=== PATIENT | male | born 1970 | race Caucasian/White ===

== ENCOUNTER 2020-11-22 18:00 | Observation (INO) | payer BC, OTHER ==
[2020-11-22] MEDS ORDERED: Sodium Chloride 0.9% 10 ML Syringe FLUSH PRN (18:09)
[2020-11-22] MEDS ORDERED: Sodium Chloride 0.9% 2.5 ML Syringe FLUSH PRN (18:09)
[2020-11-22] MEDS ORDERED: Nitroglycerin 0.4 MG Tab.SL SL PRN (18:09)
[2020-11-22] MEDS ORDERED: Aspirin 81 MG Tab.Chew PO ONE (18:09)
--- NOTE | 2020-11-22 18:14 | EDM.PDOC ---
ED HPI GENERAL MEDICAL PROBLEM - General Stated Complaint: CHEST PAIN AND TIGHTNESS Time Seen by Provider: 11/22/20 18:08 Source of Information: Reports: Patient History Limitations: Reports: No Limitations - History of Present Illness INITIAL COMMENTS - FREE TEXT/NARRATIVE: HISTORY AND PHYSICAL: History of present illness: Patient is a 50-year-old male who presents to the ED today with concern of onset of chest tightness that radiates to his right shoulder, and exertional dyspnea that began 2 and half hours prior to arrival to the ED. Patient states he was just sitting when he began noticing his symptoms. Patient states that he started to get concerned when he had exertional dyspnea and states that walking short distances he begins to feel short of breath. Patient states he does have a history of a prior stent placed in 2019 found after his stress test according to patient. Patient states that at that time he also was having chest tightness. Patient states he had COVID-19 at the end of September/beginning of October and has been out of quarantine. Patient states that he has not taken any aspirin or medication today for his symptoms. Patient denies fever, chills, or cough. Denies headache, neck stiff ness, change in vision, syncope, or near syncope. Denies nausea, vomiting, abdominal pain, diarrhea, constipation, or dysuria. Has not noted any blood in urine or stool. Patient has been eating and drinking appropriately. Review of systems: As per history of present illness and below otherwise all systems reviewed and negative. Past medical history: As per history of present illness and as reviewed below otherwise noncontributory. Surgical history: As per history of present illness and as reviewed below otherwise noncontributory. Social history: See social history for further information Family history: As per history of present illness and as reviewed below otherwise noncontributory. Physical exam: General: Patient is alert, oriented, and in no acute distress. Patient sitting comfortably on exam table. Vitals stable and reviewed by me. HEENT: Atraumatic, normocephalic, pupils equal and reactive bilaterally, negative for conjunctival pallor or scleral icterus, mucous membranes moist, TMs normal bilaterally, throat clear, neck supple, nontender, trachea midline. No drooling or trismus noted. No meningeal signs. No hot potato voice noted. Lungs: Clear to auscultation, breath sounds equal bilaterally, chest nontender. Heart: S1S2, regular rate and rhythm without overt murmur Abdomen: Soft, nondistended, nontender. Negative for masses or hepatosple nomegaly. Negative for costovertebral tenderness. Pelvis: Stable nontender. Genitourinary: Deferred. Rectal: Deferred. Skin: Intact, warm, dry. No lesions or rashes noted. Extremities: Atraumatic, negative for cords or calf pain. Neurovascular unremarkable. Neuro: Awake, alert, oriented. Cranial nerves II through XII unremarkable. Cerebellum unremarkable. Motor and sensory unremarkable throughout. Exam nonfocal. Notes: Upon reevaluation of patient, he expresses that his chest pain is coming and going. Not having chest pain but he just had chest pain 10 minutes prior to me arriving into the room which resolved on its own. Dr. Abbasi consulted on patient and will admit to observation telemetry. Voices understanding and is agreeable to plan of care. Denies any further questions or concerns at this time. Diagnostics: EKG, CBC, CMP, CXR, Trop, Ddimer, Lipase, Ang CT, repeat trop Therapeutics: ASA, Nitro SL x 3 Impression: Chest pain r/o ACS Plan: Admit to observation to Dr. Abbasi on telemetry Definitive disposition and diagnosis as appropriate pending reevaluation and review of above. right arm Pain Score (Numeric/FACES): 4 chest/r arm Pain Score (Numeric/FACES): 8 - Related Data Allergies Allergy/AdvReac Type Severity Reaction Status Date / Time No Known Allergies Allergy Verified 11/22/20 18:37 Home Meds: Home Meds Aspirin 81 mg PO DAILY 11/22/20 [History] Insulin Detemir [Levemir] 20 units SQ DAILY 11/22/20 [History] PARoxetine [Paxil] 40 mg PO DAILY 11/22/20 [History] Simvastatin 10 mg PO DAILY 11/22/20 [History] SitaGLIPtin [Januvia] 100 mg PO DAILY 11/22/20 [History] Ticagrelor [Brilinta] 90 mg PO BID 11/22/20 [History] carvediloL [Carvedilol] 3.125 mg PO BID 11/22/20 [History] metFORMIN [Glucophage] 1,000 mg PO BID 11/22/20 [History] ED ROS GENERAL - Review of Systems Review Of Systems: Comprehensive ROS is negative, except as noted in HPI. ED EXAM, GENERAL - Physical Exam Exam: See Below (see dictation) Course - Vital Signs Last Recorded V/S: Last Vital Signs Temp 98.7 F 11/22/20 18:41 Pulse 93 11/22/20 21:46 Resp 18 11/22/20 20:05 BP 141/83 H 11/22/20 21:46 Pulse Ox 98 11/22/20 21:46 - Orders/Labs/Meds Orders: Active Orders 24 hr Category Date Time Status Admission Status [Patient Status] [ADT] Stat ADT 11/22/20 22:11 Active Cardiac Monitoring [RC] . DIRECTED Care 11/22/20 18:09 Active Cardiac Monitoring [RC] . DIRECTED Care 11/22/20 22:11 Active EKG Documentation Completion [RC] STAT Care 11/22/20 18:09 Active CORONAVIRUS COVID-19 [facility] [MOLEC] Stat Lab 11/22/20 22:18 Received Nitroglycerin [Nitrostat] Med 11/22/20 18:09 Active 0.4 mg SL Q5M PRN Sodium Chloride 0.9% [Saline Flush] Med 11/22/20 18:09 Active 10 ml FLUSH ASDIRECTED PRN Sodium Chloride 0.9% [Saline Flush] Med 11/22/20 18:09 Active 2.5 ml FLUSH ASDIRECTED PRN Saline Lock Insert [OM.PC] Stat Oth 11/22/20 18:09 Ordered Medication Orders Nitroglycerin (Nitrostat) 0.4 mg SL Q5M PRN PRN Reason: Chest Pain Last Admin: 11/22/20 18:19 Dose: 0.4 mg Documented by: ELIORI Sodium Chloride (Saline Flush) 10 ml FLUSH ASDIRECTED PRN PRN Reason: Keep Vein Open Last Admin: 11/22/20 18:13 Dose: 10 ml Documented by: ELIORI Sodium Chloride (Saline Flush) 2.5 ml FLUSH ASDIRECTED PRN PRN Reason: Keep Vein Open Last Admin: 11/22/20 18:13 Dose: 2.5 ml Documented by: JUANITA Labs: Laboratory Tests 11/22/20 11/22/20 11/22/20 Range/Units 18:10 18:10 18:10 WBC 16.88 H (4.0-11.0) K/uL RBC 4.92 (4.50-5.90) M/uL Hgb 14.2 (13.0-17.0) g/dL Hct 42.0 (38.0-50.0) % MCV 85.4 (80.0-98.0) fL MCH 28.9 (27.0-32.0) pg MCHC 33.8 (31.0-37.0) g/dL RDW Std Deviation 41.0 (28.0-62.0) fl RDW Coeff of Master 13 (11.0-15.0) % Plt Count 269 (150-400) K/uL MPV 10.20 (7.40-12.00) fL Add Manual Diff YES Neutrophils % (Manual) 68 (48.0-80.0) % Lymphocytes % (Manual) 22 (16.0-40.0) % Monocytes % (Manual) 9 (0.0-15.0) % Eosinophils % (Manual) 1 (0.0-7.0) % Absolute Seg Neuts 11.5 H (1.4-5.7) Lymphocytes # (Manual) 3.7 H (0.6-2.4) Monocytes # (Manual) 1.5 H (0.0-0.8) Eosinophils # (Manual) 0.2 (0.0-0.7) D-Dimer, Quantitative 0.69 H (0.0-0.50) mg/L FEU Lactate (0.20-2.00) mmol/L Sodium 136 (136-148) mmol/L Potassium 3.8 (3.5-5.1) mmol/L Chloride 98 (98-107) mmol/L Carbon Dioxide 26.3 (21.0-32.0) mmol/L BUN 16 (7.0-18.0) mg/dL Creatinine 1.2 (0.8-1.3) mg/dL Est Cr Clr Drug Dosing 72.83 mL/min Estimated GFR (MDRD) > 60.0 ml/min Glucose 228 H (74-106) mg/dL Calcium 9.2 (8.5-10.1) mg/dL Total Bilirubin 0.4 (0.2-1.0) mg/dL AST 15 (15-37) IU/L ALT 18 (14-63) IU/L Alkaline Phosphatase 90 (46-116) U/L Troponin I < 0.050 (0.000-0.056) ng/mL Total Protein 7.1 (6.4-8.2) g/dL Albumin 3.3 L (3.4-5.0) g/dL Globulin 3.8 (2.6-4.0) g/dL Albumin/Globulin Ratio 0.9 (0.9-1.6) Lipase 208 (73-393) U/L 11/22/20 11/22/20 Range/Units 18:49 21:45 WBC (4.0-11.0) K/uL RBC (4.50-5.90) M/uL Hgb (13.0-17.0) g/dL Hct (38.0-50.0) % MCV (80.0-98.0) fL MCH (27.0-32.0) pg MCHC (31.0-37.0) g/dL RDW Std Deviation (28.0-62.0) fl RDW Coeff of Master (11.0-15.0) % Plt Count (150-400) K/uL MPV (7.40-12.00) fL Add Manual Diff Neutrophils % (Manual) (48.0-80.0) % Lymphocytes % (Manual) (16.0-40.0) % Monocytes % (Manual) (0.0-15.0) % Eosinophils % (Manual) (0.0-7.0) % Absolute Seg Neuts (1.4-5.7) Lymphocytes # (Manual) (0.6-2.4) Monocytes # (Manual) (0.0-0.8) Eosinophils # (Manual) (0.0-0.7) D-Dimer, Quantitative (0.0-0.50) mg/L FEU Lactate 0.8 (0.20-2.00) mmol/L Sodium (136-148) mmol/L Potassium (3.5-5.1) mmol/L Chloride (98-107) mmol/L Carbon Dioxide (21.0-32.0) mmol/L BUN (7.0-18.0) mg/dL Creatinine (0.8-1.3) mg/dL Est Cr Clr Drug Dosing mL/min Estimated GFR (MDRD) ml/min Glucose (74-106) mg/dL Calcium (8.5-10.1) mg/dL Total Bilirubin (0.2-1.0) mg/dL AST (15-37) IU/L ALT (14-63) IU/L Alkaline Phosphatase (46-116) U/L Troponin I < 0.050 (0.000-0.056) ng/mL Total Protein (6.4-8.2) g/dL Albumin (3.4-5.0) g/dL Globulin (2.6-4.0) g/dL Albumin/Globulin Ratio (0.9-1.6) Lipase (73-393) U/L Meds: Medications Generic Name Dose Route Start Last Admin Trade Name Freq PRN Reason Stop Dose Admin Nitroglycerin 0.4 mg 11/22/20 18:09 11/22/20 18:19 Nitrostat SL 0.4 mg Q5M PRN Administration Chest Pain Sodium Chloride 10 ml 11/22/20 18:09 11/22/20 18:13 Saline Flush FLUSH 10 ml ASDIRECTED PRN Administration Keep Vein Open Sodium Chloride 2.5 ml 11/22/20 18:09 11/22/20 18:13 Saline Flush FLUSH 2.5 ml ASDIRECTED PRN Administration Keep Vein Open Discontinued Medications Generic Name Dose Route Start Last Admin Trade Name Dwayne PRN Reason Stop Dose Admin Aspirin 324 mg 11/22/20 18:09 11/22/20 18:12 Aspirin PO 11/22/20 18:10 324 mg ONETIME ONE Administration Aspirin Confirm 11/22/20 18:15 11/22/20 18:20 Aspirin Administered 11/22/20 18:16 Not Given Dose 81 mg .ROUTE .STK-MED ONE Iopamidol 100 ml 11/22/20 21:26 11/22/20 21:26 Isovue Multipack-370 (76%) IVPUSH 11/22/20 21:27 100 ml ONETIME STA Administration Departure - Departure Time of Disposition: 22:19 Disposition: Refer to Observation Clinical Impression: Chest pain Qualifiers: Chest pain type: unspecified Qualified Code(s): R07.9 - Chest pain, unspecified - Discharge Information Referrals: PCP,Unknown [Primary Care Provider] - Sepsis Event Note (ED) - Focused Exam Vital Signs: Vital Signs Temp Pulse Resp BP BP Pulse Ox 11/22/20 21:46 93 141/83 H 98 11/22/20 20:05 91 18 136/76 95 11/22/20 18:41 98.7 F 103 H 18 172/129 H 99 11/22/20 18:23 102 H 114/74 97 11/22/20 18:19 151/87 H 151/87 H - My Orders Last 24 Hours: My Active Orders 11/22/20 18:09 Cardiac Monitoring [RC] . DIRECTED EKG Documentation Completion [RC] STAT Nitroglycerin [Nitrostat] 0.4 mg SL Q5M PRN Sodium Chloride 0.9% [Saline Flush] 10 ml FLUSH ASDIRECTED PRN Sodium Chloride 0.9% [Saline Flush] 2.5 ml FLUSH ASDIRECTED PRN Saline Lock Insert [OM.PC] Stat 11/22/20 22:11 Admission Status [Patient Status] [ADT] Stat Cardiac Monitoring [RC] . DIRECTED 11/22/20 22:18 CORONAVIRUS COVID-19 [facility] [MOLEC] Stat - Assessment/Plan Last 24 Hours: My Active Orders 11/22/20 18:09 Cardiac Monitoring [RC] . DIRECTED EKG Documentation Completion [RC] STAT Nitroglycerin [Nitrostat] 0.4 mg SL Q5M PRN Sodium Chloride 0.9% [Saline Flush] 10 ml FLUSH ASDIRECTED PRN Sodium Chloride 0.9% [Saline Flush] 2.5 ml FLUSH ASDIRECTED PRN Saline Lock Insert [OM.PC] Stat 11/22/20 22:11 Admission Status [Patient Status] [ADT] Stat Cardiac Monitoring [RC] . DIRECTED 11/22/20 22:18 CORONAVIRUS COVID-19 [facility] [MOLEC] Stat
[2020-11-22] MEDS ORDERED: Aspirin 81 MG Tab.Chew ONE (18:15)
--- NOTE | 2020-11-22 18:23 | PCM.SN.2 ---
- Free Text/Narrative Note: EKG Time 602pm Rate 99 NSR no RACHEL
--- NOTE | 2020-11-22 18:34 | CR ---
INDICATION: Chest pain, SOB1 image TECHNIQUE: Chest 1 view. COMPARISON: None. FINDINGS: Cardiovascular and mediastinum: Heart size and vasculature are normal in caliber and appearance. Mediastinum is within normal limits. Lungs and pleural space: Lungs are clear. No sign of infiltrate or mass. No sign of pleural effusion. No pneumothorax. Bones and soft tissues: No significant findings. IMPRESSION: Unremarkable chest. Dictated by: Hayden Alexander MD @ 11/22/2020 18:33:57 (Electronically Signed)
[2020-11-22 18:46] LABS: BLOOD UREA NITROGEN,BUN 16 mg/dL (7.0-18.0); CARBON DIOXIDE,CO2 26.3 mmol/L (21.0-32.0); CHLORIDE,CL 98 mmol/L (98-107); GLUCOSE RANDOM 228 mg/dL (74-106); LIPASE 208 U/L (73-393); POTASSIUM,K 3.8 mmol/L (3.5-5.1); SODIUM,NA 136 mmol/L (136-148)
[2020-11-22] MEDS ORDERED: Iopamidol 755 MG/ML 500 ML Multipack Bottle IVPUSH STA (21:26)
--- NOTE | 2020-11-22 21:48 | CT ---
INDICATION: Chest pain and shortness breath. Elevated D-dimer. TECHNIQUE: CT chest PE was acquired with 100 cc Isovue 370 IV contrast. COMPARISON: None. FINDINGS: Heart and vasculature: Contrast opacification of the pulmonary arterial tree is adequate. No sign of pulmonary embolism. Heart size is normal. Thoracic aorta and pulmonary artery are normal in caliber. Lungs and pleural: No suspicious nodules or infiltrates. No pleural effusions, pleural thickening, or pneumothorax. Lymph nodes/mediastinum: No mediastinal, hilar, or axillary adenopathy. Thyroid gland is normal. Chest wall: No masses. Upper abdomen: Normal. Bones: Unremarkable for age. IMPRESSION: Unremarkable CT of the chest. No pulmonary embolism and the lungs are clear. Please note that all CT scans at this facility use dose modulation, iterative reconstruction, and/or weight-based dosing when appropriate to reduce radiation dose to as low as reasonably achievable. Dictated by Shlomo Harris MD @ Nov 22 2020 9:39PM Signed by Dr. Shlomo Harris @ Nov 22 2020 9:47PM
[2020-11-22] MEDS ORDERED: Alum Hydrox/Mag Hydrox/Simeth 15 ML, Lidocaine 2% 5 ML PO ONE ×2 (22:45)
[2020-11-22] MEDS ORDERED: Ondansetron 4 MG/2 ML SDV IVPUSH PRN (23:39)
[2020-11-22] MEDS ORDERED: Albuterol/Ipratropium 3.0-0.5 MG/3 ML Neb Soln NEB PRN (23:39)
[2020-11-22] MEDS ORDERED: Morphine 2 MG/ML SYRINGE IVPUSH PRN (23:42)
[2020-11-22] MEDS ORDERED: 50% Dextrose in Water 50 ML Syringe IV PRN (23:44)
[2020-11-22] MEDS ORDERED: Glucagon,Human Recombinant 1 MG Vial IM PRN (23:44)
[2020-11-22] MEDS ORDERED: Pantoprazole 40 MG in Sodium Chloride 0.9% 10 ML IV SCH (23:45)
[2020-11-22] MEDS ORDERED: Enoxaparin 40 MG/0.4 ML Syringe SUBCUT SCH (23:45)
--- NOTE | 2020-11-22 23:57 | PCM.HP.2 ---
H&P History of Present Illness - General Date of Service: 11/22/20 Admit Problem/Dx: Admission Diagnosis/Problem Admission Diagnosis/Problem Chest pain - History of Present Illness Initial Comments - Free Text/Narative: Patient is a 50-year-old male with PMH of CAD, s/p stenting in 2018, DM on insulin, HTN, smoker who presents to the ED today with concern of onset of chest pain that radiates to his right shoulder associated with exertional dyspnea that began 2 and half hours prior to arrival to the ED. Patient states he had COVID- 19 at the end of September/beginning of October and has been out of quarantine. Patient also c/o of tingling of his right arm without any associated weakness going on for pas 2-3 weeks, states he also has some associated pain in his right shoulder. Patient also c/o intermittent palpitations, not associated with dizziness. He received Nitro and ASA in ER with some relief. EKG was unremarkable for acute ischemic changes., Troponin was negative, CBC showed leucocytosis, During my interview he was c/o some epigastric pain, states he feels a lot more tired these days. Patients BP was elevated in ER which resolved spontaneously. Patient was admitted for further care. right arm Pain Score (Numeric/FACES): 4 chest/r arm Pain Score (Numeric/FACES): 8 - Related Data Allergies/Adverse Reactions: Allergies Allergy/AdvReac Type Severity Reaction Status Date / Time No Known Allergies Allergy Verified 11/22/20 18:37 Home Medications: Home Meds Aspirin 81 mg PO DAILY 11/22/20 [History] Insulin Detemir [Levemir] 20 units SQ DAILY 11/22/20 [History] PARoxetine [Paxil] 40 mg PO DAILY 11/22/20 [History] Simvastatin 10 mg PO DAILY 11/22/20 [History] SitaGLIPtin [Januvia] 100 mg PO DAILY 11/22/20 [History] Ticagrelor [Brilinta] 90 mg PO BID 11/22/20 [History] carvediloL [Carvedilol] 3.125 mg PO BID 11/22/20 [History] metFORMIN [Glucophage] 1,000 mg PO BID 11/22/20 [History] Past Medical History Cardiovascular History: Reports: Stents Other Musculoskeletal History: pelvic fx Endocrine/Metabolic History: Reports: Diabetes, Type II - Past Surgical History Cardiovascular Surgical History: Reports: Valve Replacement Social & Family History - Family History Family Medical History: No Pertinent Family History - Caffeine Use Caffeine Use: Reports: Coffee - Recreational Drug Use Recreational Drug Use: No H&P Review of Systems - Review of Systems: Review Of Systems: See Below General: Reports: Weakness. Denies: Fever, Chills, Malaise Pulmonary: Denies: Shortness of Breath, Wheezing, Pleuritic Chest Pain, Sputum Cardiovascular: Reports: Chest Pain, Palpitations, Dyspnea on Exertion. Denies: Orthopnea, PND, Edema, Lightheadedness Gastrointestinal: Denies: Abdominal Pain, Anorexia, Black Stool, Bloody Stool Genitourinary: Denies: Dysuria, Frequency, Burning, Urgency Musculoskeletal: Reports: Shoulder Pain, Arm Pain (tingling). Denies: Neck Pain, Back Pain, Hand Pain, Leg Pain, Foot Pain Skin: Denies: Cyanosis, Jaundice, Mottled Psychiatric: Denies: Confusion, Depression, Mood Lability Neurological: Denies: Confusion, Dizziness, Headache Exam - Exam Exam: See Below - Vital Signs Vital Signs: Last Vital Signs Temp 37.1 C 11/22/20 18:41 Pulse 95 11/22/20 23:40 Resp 18 11/22/20 20:05 BP 132/83 11/22/20 23:40 Pulse Ox 95 11/22/20 23:40 Weight: 99.79 kg - Exam General: Alert, Oriented, Cooperative Lungs: Clear to Auscultation, Normal Respiratory Effort Cardiovascular: Regular Rate, Regular Rhythm, Normal S1, Normal S2 GI/Abdominal Exam: Normal Bowel Sounds, Soft, Non-Tender, No Organomegaly, No Distention Back Exam: Normal Inspection Extremities: Normal Inspection, Normal Range of Motion, No Pedal Edema. No: Pedal Edema, Joint Swelling, Leg Pain, Limited Range of Motion, Increased Warmth Neuro Extensive - Mental Status: Alert, Oriented x3, Normal Mood/Affect, Normal Cognition Neuro Extensive - Motor, Sensory, Reflexes: No: Abnormal Gait, Abnormal Reflexes, Ataxia, Tongue Deviation (L), Facial palsy (L), Facial Palsy (R), Abnormal Motor, Tremor, Motor/Sensory Deficits - Patient Data Lab Results Last 24 hrs: Laboratory Results - last 24 hr 01/11/21 01/11/21 01/11/21 Range/Units 18:10 18:10 18:10 WBC 16.88 H (4.0-11.0) K/uL RBC 4.92 (4.50-5.90) M/uL Hgb 14.2 (13.0-17.0) g/dL Hct 42.0 (38.0-50.0) % MCV 85.4 (80.0-98.0) fL MCH 28.9 (27.0-32.0) pg MCHC 33.8 (31.0-37.0) g/dL RDW Std Deviation 41.0 (28.0-62.0) fl RDW Coeff of Master 13 (11.0-15.0) % Plt Count 269 (150-400) K/uL MPV 10.20 (7.40-12.00) fL Add Manual Diff YES Neutrophils % (Manual) 68 (48.0-80.0) % Lymphocytes % (Manual) 22 (16.0-40.0) % Monocytes % (Manual) 9 (0.0-15.0) % Eosinophils % (Manual) 1 (0.0-7.0) % Absolute Seg Neuts 11.5 H (1.4-5.7) Lymphocytes # (Manual) 3.7 H (0.6-2.4) Monocytes # (Manual) 1.5 H (0.0-0.8) Eosinophils # (Manual) 0.2 (0.0-0.7) D-Dimer, Quantitative 0.69 H (0.0-0.50) mg/L FEU Lactate (0.20-2.00) mmol/L Sodium 136 (136-148) mmol/L Potassium 3.8 (3.5-5.1) mmol/L Chloride 98 (98-107) mmol/L Carbon Dioxide 26.3 (21.0-32.0) mmol/L BUN 16 (7.0-18.0) mg/dL Creatinine 1.2 (0.8-1.3) mg/dL Est Cr Clr Drug Dosing 72.83 mL/min Estimated GFR (MDRD) > 60.0 ml/min Glucose 228 H (74-106) mg/dL Calcium 9.2 (8.5-10.1) mg/dL Total Bilirubin 0.4 (0.2-1.0) mg/dL AST 15 (15-37) IU/L ALT 18 (14-63) IU/L Alkaline Phosphatase 90 (46-116) U/L Troponin I < 0.050 (0.000-0.056) ng/mL Total Protein 7.1 (6.4-8.2) g/dL Albumin 3.3 L (3.4-5.0) g/dL Globulin 3.8 (2.6-4.0) g/dL Albumin/Globulin Ratio 0.9 (0.9-1.6) Lipase 208 (73-393) U/L SARS-CoV-2 RNA ([facility]) (NEGATIVE) 11/22/20 11/22/20 11/22/20 Range/Units 18:49 21:45 22:18 WBC (4.0-11.0) K/uL RBC (4.50-5.90) M/uL Hgb (13.0-17.0) g/dL Hct (38.0-50.0) % MCV (80.0-98.0) fL MCH (27.0-32.0) pg MCHC (31.0-37.0) g/dL RDW Std Deviation (28.0-62.0) fl RDW Coeff of Master (11.0-15.0) % Plt Count (150-400) K/uL MPV (7.40-12.00) fL Add Manual Diff Neutrophils % (Manual) (48.0-80.0) % Lymphocytes % (Manual) (16.0-40.0) % Monocytes % (Manual) (0.0-15.0) % Eosinophils % (Manual) (0.0-7.0) % Absolute Seg Neuts (1.4-5.7) Lymphocytes # (Manual) (0.6-2.4) Monocytes # (Manual) (0.0-0.8) Eosinophils # (Manual) (0.0-0.7) D-Dimer, Quantitative (0.0-0.50) mg/L FEU Lactate 0.8 (0.20-2.00) mmol/L Sodium (136-148) mmol/L Potassium (3.5-5.1) mmol/L Chloride (98-107) mmol/L Carbon Dioxide (21.0-32.0) mmol/L BUN (7.0-18.0) mg/dL Creatinine (0.8-1.3) mg/dL Est Cr Clr Drug Dosing mL/min Estimated GFR (MDRD) ml/min Glucose (74-106) mg/dL Calcium (8.5-10.1) mg/dL Total Bilirubin (0.2-1.0) mg/dL AST (15-37) IU/L ALT (14-63) IU/L Alkaline Phosphatase (46-116) U/L Troponin I < 0.050 (0.000-0.056) ng/mL Total Protein (6.4-8.2) g/dL Albumin (3.4-5.0) g/dL Globulin (2.6-4.0) g/dL Albumin/Globulin Ratio (0.9-1.6) Lipase (73-393) U/L SARS-CoV-2 RNA ([facility]) NEGATIVE (NEGATIVE) Result Diagrams: 11/22/20 18:10 11/22/20 18:10 Sepsis Event Note - Evaluation Sepsis Screening Result: No Definite Risk - Focused Exam Vital Signs: Vital Signs Temp Pulse Resp BP BP Pulse Ox 11/22/20 23:40 95 132/83 95 11/22/20 21:46 93 141/83 H 98 11/22/20 20:05 91 18 136/76 95 11/22/20 18:41 37.1 C 103 H 18 172/129 H 99 11/22/20 18:23 102 H 114/74 97 11/22/20 18:19 151/87 H 151/87 H - Problem List (1) HTN (hypertension) SNOMED Code(s): 70169690 ICD Code: I10 - ESSENTIAL (PRIMARY) HYPERTENSION Status: Acute Current Visit: Yes (2) Diabetes SNOMED Code(s): 88562364 ICD Code: E11.9 - TYPE 2 DIABETES MELLITUS WITHOUT COMPLICATIONS Status: Acute Current Visit: Yes (3) CAD (coronary artery disease) SNOMED Code(s): 74452089 ICD Code: I25.10 - ATHSCL HEART DISEASE OF [place] CORONARY ARTERY W/O ANG PCTRS Status: Acute Current Visit: Yes (4) Chest pain SNOMED Code(s): 37302256 ICD Code: R07.9 - CHEST PAIN, UNSPECIFIED Status: Acute Current Visit: Yes Qualifiers: Chest pain type: unspecified Qualified Code(s): R07.9 - Chest pain, unspecified (5) Smoker SNOMED Code(s): 56382004 ICD Code: F17.200 - NICOTINE DEPENDENCE, UNSPECIFIED, UNCOMPLICATED Status: Acute Current Visit: Yes Problem List Initiated/Reviewed/Updated: Yes Orders Last 24hrs: Active Orders 24 hr Category Date Time Status Admission Status [Patient Status] [ADT] Stat ADT 11/22/20 22:11 Active Antiembolic Devices [RC] PER UNIT ROUTINE Care 11/22/20 23:40 Active Cardiac Monitoring [RC] . DIRECTED Care 11/22/20 18:09 Active EKG Documentation Completion [RC] STAT Care 11/22/20 18:09 Active Oxygen Therapy [RC] PRN Care 11/22/20 23:40 Active Pulse Oximetry [RC] PRN Care 11/22/20 23:40 Active RT Aerosol Therapy [RC] ASDIRECTED Care 11/22/20 23:40 Active VTE/DVT Education [RC] PER UNIT ROUTINE Care 11/22/20 23:40 Active Vital Signs [RC] Q4H Care 11/22/20 23:40 Active Heart Healthy Diet [DIET] Diet 11/23/20 Breakfast Active BMP [BASIC METABOLIC PANEL,BMP] [CHEM] AM Lab 11/23/20 05:11 Ordered CBC WITH AUTO DIFF [HEME] AM Lab 11/23/20 05:11 Ordered GLYCOSYLATED HEMOGLOBIN,HGBA1C [CHEM] Routine Lab 11/22/20 21:45 Received LIPID PANEL [CHEM] AM Lab 11/23/20 05:11 Ordered MAGNESIUM [CHEM] AM Lab 11/23/20 05:11 Ordered PHOSPHORUS [CHEM] AM Lab 11/23/20 05:11 Ordered TROPONIN I [CHEM] Routine Lab 11/23/20 00:45 Ordered TSH [CHEM] AM Lab 11/23/20 05:11 Ordered Albuterol/Ipratropium [DuoNeb 3.0-0.5 MG/3 ML] Med 11/22/20 23:39 Active 3 ml NEB Q4HRRT PRN Aspirin Med 11/23/20 09:00 Active 81 mg PO DAILY Dextrose 50% in Water Med 11/22/20 23:44 Active 50 ml IV ASDIRECTED PRN Enoxaparin [Lovenox] Med 11/22/20 23:45 Active 40 mg SUBCUT Q24H Glucagon,Human Recombinant [GlucaGen] Med 11/22/20 23:44 Active 1 mg IM ASDIRECTED PRN Insulin Detemir [Levemir] Med 11/22/20 23:45 Active 20 unit SUBCUT DAILY Morphine Med 11/22/20 23:42 Active 1 mg IVPUSH Q4H PRN Nitroglycerin [Nitrostat] Med 11/22/20 18:09 Active 0.4 mg SL Q5M PRN Ondansetron [Zofran] Med 11/22/20 23:39 Active 4 mg IVPUSH Q4H PRN PARoxetine [Paxil] Med 11/22/20 23:45 Active 40 mg PO DAILY Pantoprazole [ProTONIX IV] 40 mg Med 11/22/20 23:45 Active Sodium Chloride 0.9% [Normal Saline] 10 ml IV Q24H Simvastatin [Zocor] Med 11/23/20 09:00 Active 10 mg PO DAILY Sodium Chloride 0.9% [Saline Flush] Med 11/22/20 18:09 Active 10 ml FLUSH ASDIRECTED PRN Sodium Chloride 0.9% [Saline Flush] Med 11/22/20 18:09 Active 2.5 ml FLUSH ASDIRECTED PRN carvediloL [Coreg] Med 11/23/20 09:00 Active 3.125 mg PO BID Saline Lock Insert [OM.PC] Stat Oth 11/22/20 18:09 Ordered Sequential Compression Device [OM.PC] Per Unit Routine Oth 11/22/20 23:40 Ordered Resuscitation Status Routine Resus Stat 11/22/20 23:39 Ordered Medication Orders Albuterol/Ipratropium (Duoneb 3.0-0.5 Mg/3 Ml) 3 ml NEB Q4HRRT PRN PRN Reason: Shortness Of Breath/wheezing Aspirin (Aspirin) 81 mg PO DAILY [facility] Carvedilol (Coreg) 3.125 mg PO BID [facility] Dextrose/Water (Dextrose 50% In Water) 50 ml IV ASDIRECTED PRN PRN Reason: Hypoglycemia Enoxaparin Sodium (Lovenox) 40 mg SUBCUT Q24H [facility] Glucagon (Glucagen) 1 mg IM ASDIRECTED PRN PRN Reason: Hypoglycemia Pantoprazole Sodium 40 mg/ (Sodium Chloride) 10 mls @ 300 mls/hr IV Q24H [facility] Insulin Detemir (Levemir) 20 unit SUBCUT DAILY [facility] Morphine Sulfate (Morphine) 1 mg IVPUSH Q4H PRN PRN Reason: Chest Pain Nitroglycerin (Nitrostat) 0.4 mg SL Q5M PRN PRN Reason: Chest Pain Last Admin: 11/22/20 18:19 Dose: 0.4 mg Documented by: JUANITA Ondansetron HCl (Zofran) 4 mg IVPUSH Q4H PRN PRN Reason: Nausea/Vomiting Paroxetine HCl (Paxil) 40 mg PO DAILY [facility] Simvastatin (Zocor) 10 mg PO DAILY [facility] Sodium Chloride (Saline Flush) 10 ml FLUSH ASDIRECTED PRN PRN Reason: Keep Vein Open Last Admin: 11/22/20 18:13 Dose: 10 ml Documented by: JUANITA Sodium Chloride (Saline Flush) 2.5 ml FLUSH ASDIRECTED PRN PRN Reason: Keep Vein Open Last Admin: 11/22/20 18:13 Dose: 2.5 ml Documented by: JUANITA Assessment/Plan Comment:: 50 y/o M admitted for chest pain Trend troponins cont ASA, statin Nitro PRN chest pain Morphine PRN chest pain Oxygen as needed Will check HbA1c, Lipid panel, TSH counseled against smoking in detail Continue home meds, may need higher dose of statin upon dc Needs stress testing and possible Zio Patch upon dc Cardiology f/u on DC
[2020-11-23] MEDS: Insulin Detemir 100 Units/ML 3 ML Pen SUBCUT SCH ×2 (01:06→09:17)
[2020-11-23] MEDS: PARoxetine 20 MG Tab PO SCH ×3 (01:07→09:05)
[2020-11-23 01:19] LABS: HEMOGLOBIN A1C 11.3 %
[2020-11-23] MEDS ORDERED: Simvastatin 10 MG Tab PO SCH ×2 (09:00→21:00)
[2020-11-23] MEDS ORDERED: Carvedilol 3.125 MG Tab PO SCH (09:00)
[2020-11-23] MEDS ORDERED: Aspirin 81 MG Tab.Chew PO SCH (09:00)
[2020-11-23] MEDS: Insulin Aspart 100 Units/ML 3 ML Pen SUBCUT SCH ×2 (09:07→11:30)
[2020-11-23] MEDS ORDERED: Lactated Ringers 500 ML IV ONE (10:33)
--- NOTE | 2020-11-23 12:14 | PCM.DCSUM1 ---
<Jo Medrano - Last Filed: 11/23/20 16:36> Discharge Summary - Hospital Course Brief History: Patient is a 50-year-old male with PMH of CAD, s/p stenting in 2019, DM on insulin, HTN, smoker who presents to the ED today with concern of onset of chest pain that radiates to his right shoulder associated with exertional dyspnea that began 2 and half hours prior to arrival to the ED. Patient states he had COVID-19 at the end of September/beginning of October and has been out of quarantine. Patient also c/o of tingling of his right arm without any associated weakness going on for pas 2-3 weeks, states he also has some associated pain in his right shoulder. Patient also c/o intermittent pa lpitations, not associated with dizziness. He received Nitro and ASA in ER with some relief. EKG was unremarkable for acute ischemic changes., Troponin was negative, CBC showed leucocytosis, During my interview he was c/o some epigastric pain, states he feels a lot more tired these days. Patients BP was elevated in ER which resolved spontaneously. Patient was admitted for further care. Diagnosis: Stroke: No - Discharge Data Discharge Date: 11/23/20 Discharge Disposition: Home, Self-Care 01 Condition: Fair - Referral to Home Health Primary Care Physician: PCP None - Patient Summary/Data Hospital Course: Pt was admitted for ACS rule out. Kept for observation to rule out an acute cardiac event. All ECG, CXR , and troponins were unremarkable. Was treated per protocol, also monitored on telemetry without any changes noted. Further evaluated for all cardiovascular risk factors with optimization of medical treatment. All home medications were reveiwed and adjusted appropriately. Pt slept well, complained of mild pain 1/10, described a intermittent. Therefore, arranged for close cardiology follow up as outpatient, was given scripts for both Zio patch for palpitations and cardiac stress test. - Patient Instructions Diet: Heart Healthy Diet Activity: As Tolerated Driving: May Drive Today Showering/Bathing: May Shower Notify Provider of: Fever, Increased Pain, Swelling and Redness, Drainage, Nausea and/or Vomiting Other/Special Instructions: Please return to hospital in the event that you develop chest pain, perfuse sweating, shortness of breth, palpitaions, dizziness, feeling faint. - Discharge Plan *PRESCRIPTION DRUG MONITORING PROGRAM REVIEWED*: No *COPY OF PRESCRIPTION DRUG MONITORING REPORT IN PATIENT SHY: No Prescriptions/Med Rec: atorvaSTATin [Lipitor] 40 mg PO BEDTIME #30 tab Home Medications: Home Meds Aspirin 81 mg PO DAILY 11/22/20 [History] Insulin Detemir [Levemir] 15 - 20 units SQ DAILY 11/22/20 [History] PARoxetine [Paxil] 40 mg PO DAILY 11/22/20 [History] SitaGLIPtin [Januvia] 100 mg PO DAILY 11/22/20 [History] Ticagrelor [Brilinta] 90 mg PO BID 11/22/20 [History] carvediloL [Carvedilol] 3.125 mg PO BID 11/22/20 [History] metFORMIN [Glucophage] 1,000 mg PO BID 11/22/20 [History] atorvaSTATin [Lipitor] 40 mg PO BEDTIME #30 tab 11/23/20 [Rx] Patient Handouts: Steps to Quit Smoking, [id number], Tips for Eating Away From Home If You Have Diabetes, Exercise Stress Test, [id number], Nonspecific Chest Pain, Adult, [id number], Atorvastatin tablets, Angina Referrals: Xander Noriega Jr, PA-C [Ordering Only Provider] - 12/03/20 9:30 am - Discharge Summary/Plan Comment DC Time >30 min.: No Discharge Summary/Plan Comment: Pt is to closely follow up with PCP to re-evaluate diabetes regimen as HgA1c was found to be 11.3, and ensure pt is tolerating new medication Atorvastatin for elevated LDL. Furthermore, to closely follow up with Dr. Dale in Cardiology for stress testing and post Zio patch. - Patient Data Vitals - Most Recent: Last Vital Signs Temp 97.7 F 11/23/20 11:32 Pulse 68 11/23/20 11:32 Resp 16 11/23/20 11:32 BP 107/88 11/23/20 11:32 Pulse Ox 97 11/23/20 11:32 Weight - Most Recent: 208.9 kg I&O - Last 24 hours: Intake & Output 11/22/20 11/23/20 11/23/20 22:59 06:59 14:59 Intake Total 680 Balance 680 Lab Results - Last 24 hrs: Laboratory Results - last 24 hr 11/22/20 11/22/20 11/22/20 Range/Units 18:10 18:10 18:10 WBC 16.88 H (4.0-11.0) K/uL RBC 4.92 (4.50-5.90) M/uL Hgb 14.2 (13.0-17.0) g/dL Hct 42.0 (38.0-50.0) % MCV 85.4 (80.0-98.0) fL MCH 28.9 (27.0-32.0) pg MCHC 33.8 (31.0-37.0) g/dL RDW Std Deviation 41.0 (28.0-62.0) fl RDW Coeff of Master 13 (11.0-15.0) % Plt Count 269 (150-400) K/uL MPV 10.20 (7.40-12.00) fL Neut % (Auto) (48.0-80.0) % Lymph % (Auto) (16.0-40.0) % [place] % (Auto) (0.0-15.0) % Eos % (Auto) (0.0-7.0) % Baso % (Auto) (0.0-1.5) % Neut # (Auto) (1.4-5.7) K/uL Lymph # (Auto) (0.6-2.4) K/uL [place] # (Auto) (0.0-0.8) K/uL Eos # (Auto) (0.0-0.7) K/uL Baso # (Auto) (0.0-0.1) K/uL Add Manual Diff YES Neutrophils % (Manual) 68 (48.0-80.0) % Lymphocytes % (Manual) 22 (16.0-40.0) % Monocytes % (Manual) 9 (0.0-15.0) % Eosinophils % (Manual) 1 (0.0-7.0) % Absolute Seg Neuts 11.5 H (1.4-5.7) Lymphocytes # (Manual) 3.7 H (0.6-2.4) Monocytes # (Manual) 1.5 H (0.0-0.8) Eosinophils # (Manual) 0.2 (0.0-0.7) D-Dimer, Quantitative 0.69 H (0.0-0.50) mg/L FEU Lactate (0.20-2.00) mmol/L Sodium 136 (136-148) mmol/L Potassium 3.8 (3.5-5.1) mmol/L Chloride 98 (98-107) mmol/L Carbon Dioxide 26.3 (21.0-32.0) mmol/L BUN 16 (7.0-18.0) mg/dL Creatinine 1.2 (0.8-1.3) mg/dL Est Cr Clr Drug Dosing 72.83 mL/min Estimated GFR (MDRD) > 60.0 ml/min Glucose 228 H (74-106) mg/dL POC Glucose (60-110) mg/dL Hemoglobin A1c (4.5 - 6.2) % Calcium 9.2 (8.5-10.1) mg/dL Phosphorus (2.6-4.7) mg/dL Magnesium (1.8-2.4) mg/dL Total Bilirubin 0.4 (0.2-1.0) mg/dL AST 15 (15-37) IU/L ALT 18 (14-63) IU/L Alkaline Phosphatase 90 (46-116) U/L Troponin I < 0.050 (0.000-0.056) ng/mL Total Protein 7.1 (6.4-8.2) g/dL Albumin 3.3 L (3.4-5.0) g/dL Globulin 3.8 (2.6-4.0) g/dL Albumin/Globulin Ratio 0.9 (0.9-1.6) Triglycerides (0-200) mg/dL Cholesterol (50-200) mg/dL LDL Cholesterol, Calc (60-180) mg/dL VLDL Cholesterol (5-55) mg/dL HDL Cholesterol (40-60) mg/dL Cholesterol/HDL Ratio (3.3-6.0) Lipase 208 (73-393) U/L TSH 3rd Generation (0.36-3.74) uIU/mL SARS-CoV-2 RNA ([facility]) (NEGATIVE) 11/22/20 11/22/20 11/22/20 Range/Units 18:49 21:45 21:45 WBC (4.0-11.0) K/uL RBC (4.50-5.90) M/uL Hgb (13.0-17.0) g/dL Hct (38.0-50.0) % MCV (80.0-98.0) fL MCH (27.0-32.0) pg MCHC (31.0-37.0) g/dL RDW Std Deviation (28.0-62.0) fl RDW Coeff of Master (11.0-15.0) % Plt Count (150-400) K/uL MPV (7.40-12.00) fL Neut % (Auto) (48.0-80.0) % Lymph % (Auto) (16.0-40.0) % [place] % (Auto) (0.0-15.0) % Eos % (Auto) (0.0-7.0) % Baso % (Auto) (0.0-1.5) % Neut # (Auto) (1.4-5.7) K/uL Lymph # (Auto) (0.6-2.4) K/uL [place] # (Auto) (0.0-0.8) K/uL Eos # (Auto) (0.0-0.7) K/uL Baso # (Auto) (0.0-0.1) K/uL Add Manual Diff Neutrophils % (Manual) (48.0-80.0) % Lymphocytes % (Manual) (16.0-40.0) % Monocytes % (Manual) (0.0-15.0) % Eosinophils % (Manual) (0.0-7.0) % Absolute Seg Neuts (1.4-5.7) Lymphocytes # (Manual) (0.6-2.4) Monocytes # (Manual) (0.0-0.8) Eosinophils # (Manual) (0.0-0.7) D-Dimer, Quantitative (0.0-0.50) mg/L FEU Lactate 0.8 (0.20-2.00) mmol/L Sodium (136-148) mmol/L Potassium (3.5-5.1) mmol/L Chloride (98-107) mmol/L Carbon Dioxide (21.0-32.0) mmol/L BUN (7.0-18.0) mg/dL Creatinine (0.8-1.3) mg/dL Est Cr Clr Drug Dosing mL/min Estimated GFR (MDRD) ml/min Glucose (74-106) mg/dL POC Glucose (60-110) mg/dL Hemoglobin A1c 11.3 H (4.5 - 6.2) % Calcium (8.5-10.1) mg/dL Phosphorus (2.6-4.7) mg/dL Magnesium (1.8-2.4) mg/dL Total Bilirubin (0.2-1.0) mg/dL AST (15-37) IU/L ALT (14-63) IU/L Alkaline Phosphatase (46-116) U/L Troponin I < 0.050 (0.000-0.056) ng/mL Total Protein (6.4-8.2) g/dL Albumin (3.4-5.0) g/dL Globulin (2.6-4.0) g/dL Albumin/Globulin Ratio (0.9-1.6) Triglycerides (0-200) mg/dL Cholesterol (50-200) mg/dL LDL Cholesterol, Calc (60-180) mg/dL VLDL Cholesterol (5-55) mg/dL HDL Cholesterol (40-60) mg/dL Cholesterol/HDL Ratio (3.3-6.0) Lipase (73-393) U/L TSH 3rd Generation (0.36-3.74) uIU/mL SARS-CoV-2 RNA ([facility]) (NEGATIVE) 11/22/20 11/23/20 11/23/20 Range/Units 22:18 00:45 00:59 WBC (4.0-11.0) K/uL RBC (4.50-5.90) M/uL Hgb (13.0-17.0) g/dL Hct (38.0-50.0) % MCV (80.0-98.0) fL MCH (27.0-32.0) pg MCHC (31.0-37.0) g/dL RDW Std Deviation (28.0-62.0) fl RDW Coeff of Master (11.0-15.0) % Plt Count (150-400) K/uL MPV (7.40-12.00) fL Neut % (Auto) (48.0-80.0) % Lymph % (Auto) (16.0-40.0) % [place] % (Auto) (0.0-15.0) % Eos % (Auto) (0.0-7.0) % Baso % (Auto) (0.0-1.5) % Neut # (Auto) (1.4-5.7) K/uL Lymph # (Auto) (0.6-2.4) K/uL [place] # (Auto) (0.0-0.8) K/uL Eos # (Auto) (0.0-0.7) K/uL Baso # (Auto) (0.0-0.1) K/uL Add Manual Diff Neutrophils % (Manual) (48.0-80.0) % Lymphocytes % (Manual) (16.0-40.0) % Monocytes % (Manual) (0.0-15.0) % Eosinophils % (Manual) (0.0-7.0) % Absolute Seg Neuts (1.4-5.7) Lymphocytes # (Manual) (0.6-2.4) Monocytes # (Manual) (0.0-0.8) Eosinophils # (Manual) (0.0-0.7) D-Dimer, Quantitative (0.0-0.50) mg/L FEU Lactate (0.20-2.00) mmol/L Sodium (136-148) mmol/L Potassium (3.5-5.1) mmol/L Chloride (98-107) mmol/L Carbon Dioxide (21.0-32.0) mmol/L BUN (7.0-18.0) mg/dL Creatinine (0.8-1.3) mg/dL Est Cr Clr Drug Dosing mL/min Estimated GFR (MDRD) ml/min Glucose (74-106) mg/dL POC Glucose 269 H (60-110) mg/dL Hemoglobin A1c (4.5 - 6.2) % Calcium (8.5-10.1) mg/dL Phosphorus (2.6-4.7) mg/dL Magnesium (1.8-2.4) mg/dL Total Bilirubin (0.2-1.0) mg/dL AST (15-37) IU/L ALT (14-63) IU/L Alkaline Phosphatase (46-116) U/L Troponin I < 0.050 (0.000-0.056) ng/mL Total Protein (6.4-8.2) g/dL Albumin (3.4-5.0) g/dL Globulin (2.6-4.0) g/dL Albumin/Globulin Ratio (0.9-1.6) Triglycerides (0-200) mg/dL Cholesterol (50-200) mg/dL LDL Cholesterol, Calc (60-180) mg/dL VLDL Cholesterol (5-55) mg/dL HDL Cholesterol (40-60) mg/dL Cholesterol/HDL Ratio (3.3-6.0) Lipase (73-393) U/L TSH 3rd Generation (0.36-3.74) uIU/mL SARS-CoV-2 RNA ([facility]) NEGATIVE (NEGATIVE) 11/23/20 11/23/20 11/23/20 Range/Units 04:43 04:43 07:29 WBC 14.37 H (4.0-11.0) K/uL RBC 4.57 (4.50-5.90) M/uL Hgb 13.0 (13.0-17.0) g/dL Hct 39.4 (38.0-50.0) % MCV 86.2 (80.0-98.0) fL MCH 28.4 (27.0-32.0) pg MCHC 33.0 (31.0-37.0) g/dL RDW Std Deviation 41.8 (28.0-62.0) fl RDW Coeff of Master 14 (11.0-15.0) % Plt Count 250 (150-400) K/uL MPV 11.10 (7.40-12.00) fL Neut % (Auto) 75.8 (48.0-80.0) % Lymph % (Auto) 13.2 L (16.0-40.0) % [place] % (Auto) 8.7 (0.0-15.0) % Eos % (Auto) 1.7 (0.0-7.0) % Baso % (Auto) 0.6 (0.0-1.5) % Neut # (Auto) 10.9 H (1.4-5.7) K/uL Lymph # (Auto) 1.9 (0.6-2.4) K/uL [place] # (Auto) 1.3 H (0.0-0.8) K/uL Eos # (Auto) 0.2 (0.0-0.7) K/uL Baso # (Auto) 0.1 (0.0-0.1) K/uL Add Manual Diff Neutrophils % (Manual) (48.0-80.0) % Lymphocytes % (Manual) (16.0-40.0) % Monocytes % (Manual) (0.0-15.0) % Eosinophils % (Manual) (0.0-7.0) % Absolute Seg Neuts (1.4-5.7) Lymphocytes # (Manual) (0.6-2.4) Monocytes # (Manual) (0.0-0.8) Eosinophils # (Manual) (0.0-0.7) D-Dimer, Quantitative (0.0-0.50) mg/L FEU Lactate (0.20-2.00) mmol/L Sodium 138 (136-148) mmol/L Potassium 4.0 (3.5-5.1) mmol/L Chloride 103 (98-107) mmol/L Carbon Dioxide 27.0 (21.0-32.0) mmol/L BUN 17 (7.0-18.0) mg/dL Creatinine 1.4 H (0.8-1.3) mg/dL Est Cr Clr Drug Dosing 64.45 mL/min Estimated GFR (MDRD) 53.4 ml/min Glucose 360 H (74-106) mg/dL POC Glucose 241 H (60-110) mg/dL Hemoglobin A1c (4.5 - 6.2) % Calcium 8.7 (8.5-10.1) mg/dL Phosphorus 3.4 (2.6-4.7) mg/dL Magnesium 1.8 (1.8-2.4) mg/dL Total Bilirubin (0.2-1.0) mg/dL AST (15-37) IU/L ALT (14-63) IU/L Alkaline Phosphatase (46-116) U/L Troponin I (0.000-0.056) ng/mL Total Protein (6.4-8.2) g/dL Albumin (3.4-5.0) g/dL Globulin (2.6-4.0) g/dL Albumin/Globulin Ratio (0.9-1.6) Triglycerides 131 (0-200) mg/dL Cholesterol 217 H (50-200) mg/dL LDL Cholesterol, Calc 136 (60-180) mg/dL VLDL Cholesterol 26 (5-55) mg/dL HDL Cholesterol 55 (40-60) mg/dL Cholesterol/HDL Ratio 3.9 (3.3-6.0) Lipase (73-393) U/L TSH 3rd Generation 3.73 (0.36-3.74) uIU/mL SARS-CoV-2 RNA ([facility]) (NEGATIVE) 11/23/20 11/23/20 Range/Units 11:02 11:23 WBC (4.0-11.0) K/uL RBC (4.50-5.90) M/uL Hgb (13.0-17.0) g/dL Hct (38.0-50.0) % MCV (80.0-98.0) fL MCH (27.0-32.0) pg MCHC (31.0-37.0) g/dL RDW Std Deviation (28.0-62.0) fl RDW Coeff of Master (11.0-15.0) % Plt Count (150-400) K/uL MPV (7.40-12.00) fL Neut % (Auto) (48.0-80.0) % Lymph % (Auto) (16.0-40.0) % [place] % (Auto) (0.0-15.0) % Eos % (Auto) (0.0-7.0) % Baso % (Auto) (0.0-1.5) % Neut # (Auto) (1.4-5.7) K/uL Lymph # (Auto) (0.6-2.4) K/uL [place] # (Auto) (0.0-0.8) K/uL Eos # (Auto) (0.0-0.7) K/uL Baso # (Auto) (0.0-0.1) K/uL Add Manual Diff Neutrophils % (Manual) (48.0-80.0) % Lymphocytes % (Manual) (16.0-40.0) % Monocytes % (Manual) (0.0-15.0) % Eosinophils % (Manual) (0.0-7.0) % Absolute Seg Neuts (1.4-5.7) Lymphocytes # (Manual) (0.6-2.4) Monocytes # (Manual) (0.0-0.8) Eosinophils # (Manual) (0.0-0.7) D-Dimer, Quantitative (0.0-0.50) mg/L FEU Lactate (0.20-2.00) mmol/L Sodium (136-148) mmol/L Potassium (3.5-5.1) mmol/L Chloride (98-107) mmol/L Carbon Dioxide (21.0-32.0) mmol/L BUN (7.0-18.0) mg/dL Creatinine (0.8-1.3) mg/dL Est Cr Clr Drug Dosing mL/min Estimated GFR (MDRD) ml/min Glucose (74-106) mg/dL POC Glucose 122 H (60-110) mg/dL Hemoglobin A1c (4.5 - 6.2) % Calcium (8.5-10.1) mg/dL Phosphorus (2.6-4.7) mg/dL Magnesium (1.8-2.4) mg/dL Total Bilirubin (0.2-1.0) mg/dL AST (15-37) IU/L ALT (14-63) IU/L Alkaline Phosphatase (46-116) U/L Troponin I < 0.050 (0.000-0.056) ng/mL Total Protein (6.4-8.2) g/dL Albumin (3.4-5.0) g/dL Globulin (2.6-4.0) g/dL Albumin/Globulin Ratio (0.9-1.6) Triglycerides (0-200) mg/dL Cholesterol (50-200) mg/dL LDL Cholesterol, Calc (60-180) mg/dL VLDL Cholesterol (5-55) mg/dL HDL Cholesterol (40-60) mg/dL Cholesterol/HDL Ratio (3.3-6.0) Lipase (73-393) U/L TSH 3rd Generation (0.36-3.74) uIU/mL SARS-CoV-2 RNA ([facility]) (NEGATIVE) Med Orders - Current: Current Medications Albuterol/Ipratropium (Duoneb 3.0-0.5 Mg/3 Ml) 3 ml NEB Q4HRRT PRN PRN Reason: Shortness Of Breath/wheezing Aspirin (Aspirin) 81 mg PO DAILY [facility] Last Admin: 11/23/20 11:07 Dose: 81 mg Documented by: Atorvastatin Calcium (Lipitor) 40 mg PO BEDTIME [facility] Carvedilol (Coreg) 3.125 mg PO BID [facility] Last Admin: 11/23/20 09:04 Dose: 3.125 mg Documented by: Dextrose/Water (Dextrose 50% In Water) 50 ml IV ASDIRECTED PRN PRN Reason: Hypoglycemia Enoxaparin Sodium (Lovenox) 40 mg SUBCUT Q24H [facility] Last Admin: 11/23/20 01:08 Dose: 40 mg Documented by: Glucagon (Glucagen) 1 mg IM ASDIRECTED PRN PRN Reason: Hypoglycemia Pantoprazole Sodium 40 mg/ (Sodium Chloride) 10 mls @ 300 mls/hr IV Q24H [facility] Last Admin: 11/23/20 01:09 Dose: 300 mls/hr Documented by: Insulin Aspart (Novolog) 0 unit SUBCUT TIDAC [facility]; Protocol Last Admin: 11/23/20 11:30 Dose: Not Given Documented by: Insulin Detemir (Levemir) 20 unit SUBCUT BEDTIME [facility] Morphine Sulfate (Morphine) 1 mg IVPUSH Q4H PRN PRN Reason: Chest Pain Nitroglycerin (Nitrostat) 0.4 mg SL Q5M PRN PRN Reason: Chest Pain Last Admin: 11/22/20 18:19 Dose: 0.4 mg Documented by: Ondansetron HCl (Zofran) 4 mg IVPUSH Q4H PRN PRN Reason: Nausea/Vomiting Paroxetine HCl (Paxil) 40 mg PO DAILY [facility] Last Admin: 11/23/20 09:05 Dose: 40 mg Documented by: Sodium Chloride (Saline Flush) 10 ml FLUSH ASDIRECTED PRN PRN Reason: Keep Vein Open Last Admin: 11/22/20 18:13 Dose: 10 ml Documented by: Sodium Chloride (Saline Flush) 2.5 ml FLUSH ASDIRECTED PRN PRN Reason: Keep Vein Open Last Admin: 11/22/20 18:13 Dose: 2.5 ml Documented by: Discontinued Medications Aspirin (Aspirin) 324 mg PO ONETIME ONE Stop: 11/22/20 18:10 Last Admin: 11/22/20 18:12 Dose: 324 mg Documented by: Aspirin (Aspirin) Confirm Administered Dose 81 mg .ROUTE .STK-MED ONE Stop: 11/22/20 18:16 Last Admin: 11/22/20 18:20 Dose: Not Given Documented by: Al Hydroxide/Mg Hydroxide 15 (ml/ Lidocaine HCl 5 ml) 0 ml PO ONETIME ONE Stop: 11/22/20 22:46 Last Admin: 11/22/20 23:25 Dose: 1 each Documented by: Lactated Ringer's (Ringers, Lactated) 500 mls @ 999 mls/hr IV .BOLUS ONE Stop: 11/23/20 11:03 Last Admin: 11/23/20 10:58 Dose: 999 mls/hr Documented by: Insulin Detemir (Levemir) 20 unit SUBCUT DAILY [facility] Last Admin: 11/23/20 09:17 Dose: Not Given Documented by: Iopamidol (Isovue Multipack-370 (76%)) 100 ml IVPUSH ONETIME STA Stop: 11/22/20 21:27 Last Admin: 11/22/20 21:26 Dose: 100 ml Documented by: Simvastatin (Zocor) 10 mg PO DAILY [facility] Last Admin: 11/23/20 09:17 Dose: Not Given Documented by: Simvastatin (Zocor) 10 mg PO BEDTIME [facility] <Myrna Abbasi - Last Filed: 11/26/20 12:51> Discharge Summary - Hospital Course Free Text/Narrative:: I have seen and evaluated the patient. I have discussed findings and treatment plan with resident. I agree with the assessment and plan in the following note. - Referral to Home Health Primary Care Physician: PCP None - Discharge Diagnosis/Problem(s) (1) HTN (hypertension) SNOMED Code(s): 58423917 ICD Code: I10 - ESSENTIAL (PRIMARY) HYPERTENSION Status: Acute (2) Diabetes SNOMED Code(s): 73447286 ICD Code: E11.9 - TYPE 2 DIABETES MELLITUS WITHOUT COMPLICATIONS Status: Acute (3) CAD (coronary artery disease) SNOMED Code(s): 15711182 ICD Code: I25.10 - ATHSCL HEART DISEASE OF [place] CORONARY ARTERY W/O ANG PCTRS Status: Acute (4) Chest pain SNOMED Code(s): 35109865 ICD Code: R07.9 - CHEST PAIN, UNSPECIFIED Status: Acute Qualifiers: Chest pain type: unspecified Qualified Code(s): R07.9 - Chest pain, unspecified (5) Smoker SNOMED Code(s): 62802044 ICD Code: F17.200 - NICOTINE DEPENDENCE, UNSPECIFIED, UNCOMPLICATED Status: Acute - Patient Data Vitals - Most Recent: Last Vital Signs Temp 36.5 C 11/23/20 11:32 Pulse 68 11/23/20 11:32 Resp 16 11/23/20 11:32 BP 107/88 11/23/20 11:32 Pulse Ox 97 11/23/20 11:32 Med Orders - Current: Current Medications Discontinued Medications Albuterol/Ipratropium (Duoneb 3.0-0.5 Mg/3 Ml) 3 ml NEB Q4HRRT PRN PRN Reason: Shortness Of Breath/wheezing Aspirin (Aspirin) 324 mg PO ONETIME ONE Stop: 11/22/20 18:10 Last Admin: 11/22/20 18:12 Dose: 324 mg Documented by: Aspirin (Aspirin) Confirm Administered Dose 81 mg .ROUTE .STK-MED ONE Stop: 11/22/20 18:16 Last Admin: 11/22/20 18:20 Dose: Not Given Documented by: Aspirin (Aspirin) 81 mg PO DAILY [facility] Last Admin: 11/23/20 11:07 Dose: 81 mg Documented by: Atorvastatin Calcium (Lipitor) 40 mg PO BEDTIME [facility] Carvedilol (Coreg) 3.125 mg PO BID [facility] Last Admin: 11/23/20 09:04 Dose: 3.125 mg Documented by: Al Hydroxide/Mg Hydroxide 15 (ml/ Lidocaine HCl 5 ml) 0 ml PO ONETIME ONE Stop: 11/22/20 22:46 Last Admin: 11/22/20 23:25 Dose: 1 each Documented by: Dextrose/Water (Dextrose 50% In Water) 50 ml IV ASDIRECTED PRN PRN Reason: Hypoglycemia Enoxaparin Sodium (Lovenox) 40 mg SUBCUT Q24H [facility] Last Admin: 11/23/20 01:08 Dose: 40 mg Documented by: Glucagon (Glucagen) 1 mg IM ASDIRECTED PRN PRN Reason: Hypoglycemia Pantoprazole Sodium 40 mg/ (Sodium Chloride) 10 mls @ 300 mls/hr IV Q24H [facility] Last Admin: 11/23/20 01:09 Dose: 300 mls/hr Documented by: Lactated Ringer's (Ringers, Lactated) 500 mls @ 999 mls/hr IV .BOLUS ONE Stop: 11/23/20 11:03 Last Admin: 11/23/20 10:58 Dose: 999 mls/hr Documented by: Insulin Aspart (Novolog) 0 unit SUBCUT TIDAC [facility]; Protocol Last Admin: 11/23/20 11:30 Dose: Not Given Documented by: Insulin Detemir (Levemir) 20 unit SUBCUT DAILY [facility] Last Admin: 11/23/20 09:17 Dose: Not Given Documented by: Insulin Detemir (Levemir) 20 unit SUBCUT BEDTIME [facility] Iopamidol (Isovue Multipack-370 (76%)) 100 ml IVPUSH ONETIME STA Stop: 11/22/20 21:27 Last Admin: 11/22/20 21:26 Dose: 100 ml Documented by: Morphine Sulfate (Morphine) 1 mg IVPUSH Q4H PRN PRN Reason: Chest Pain Nitroglycerin (Nitrostat) 0.4 mg SL Q5M PRN PRN Reason: Chest Pain Last Admin: 11/22/20 18:19 Dose: 0.4 mg Documented by: Ondansetron HCl (Zofran) 4 mg IVPUSH Q4H PRN PRN Reason: Nausea/Vomiting Paroxetine HCl (Paxil) 40 mg PO DAILY [facility] Last Admin: 11/23/20 09:05 Dose: 40 mg Documented by: Simvastatin (Zocor) 10 mg PO DAILY [facility] Last Admin: 11/23/20 09:17 Dose: Not Given Documented by: Simvastatin (Zocor) 10 mg PO BEDTIME [facility] Sodium Chloride (Saline Flush) 10 ml FLUSH ASDIRECTED PRN PRN Reason: Keep Vein Open Last Admin: 11/22/20 18:13 Dose: 10 ml Documented by: Sodium Chloride (Saline Flush) 2.5 ml FLUSH ASDIRECTED PRN PRN Reason: Keep Vein Open Last Admin: 11/22/20 18:13 Dose: 2.5 ml Documented by:
[2020-11-23] MEDS ORDERED: Insulin Detemir 100 Units/ML 3 ML Pen SUBCUT SCH (21:00)
[2020-11-23] MEDS ORDERED: atorvaSTATin 40 MG Tab PO SCH (21:00)
== END 2020-11-23 13:52 | disposition home or self-care (01) ==
LOC: MW.ED 18:00 → MW.MS 22:11
PROVIDERS: ADMIT Student in an Organized Health Care Education/Training Program; ATTEND Student in an Organized Health Care Education/Training Program
DX: R07.9 Chest pain, unspecified (principal); I25.10 Atherosclerotic heart disease of native coronary artery without angina pectoris; E11.9 Type 2 diabetes mellitus without complications; I10 Essential (primary) hypertension; Z20.822 Contact with and (suspected) exposure to COVID-19; Z86.16 Personal history of COVID-19; Z95.5 Presence of coronary angioplasty implant and graft; Z79.82 Long term (current) use of aspirin; Z79.84 Long term (current) use of oral hypoglycemic drugs; Z79.899 Other long term (current) drug therapy; Z98.890 Other specified postprocedural states
CPT/HCPCS: 36415; 71045; 71275; 80048; 80053; 80061; 82962; 83036; 83605; 83690; 83735; 84100; 84443; 84484; 85025; 85379; 87635; 93005; 99285; A9270; C9113; J1650; J1815; J7120; Q9967; 93010; 96372; 96374; 99284; G0378; U0002